=== PATIENT | female | born 1960 | race Caucasian/White ===

== ENCOUNTER 2024-07-11 08:57 | Emergency (ER) | payer OTHER, SELFPAY ==
[2024-07-11 09:03] VITALS: BP 157/103
--- NOTE | 2024-07-11 09:38 | ED.GENMED ---
History of Present Illness
General
Chief Complaint: Chest Pain
Source: patient
Exam Limitations: none
Time Seen by Provider: 07/11/24 09:21
History of Present Illness
History of Present Illness:
63-year-old female presents complaining of left-sided chest discomfort rating down the arm that started about 2 days ago. This was preceded by increased frequency of palpitations over the past 2 weeks. She notes skipped beats and occasional strong
beats. She also notes recent flights to [place] within the past several weeks. Occasionally Gets lightheaded. The discomfort in her chest may be more suddenly worse deep breathing. She denies shortness of breath. She has a history of high
cholesterol. She is on estradiol cream topically. She is not a smoker. No other complaints at this time
Past History
Past History
ED Past Medical History: None
ED Past Surgical History: None
Phy Exam
Physical Exam
Physical Exam:
General: Well-appearing female no acute respiratory distress
HEENT: Normocephalic atraumatic
Heart: Regular rate and rhythm no murmurs
Lungs: Clear no wheeze
Extremities: No cyanosis or edema no calf tenderness
Skin is warm no rash
Scores
Heart Score for Chest Pain Patients
STEMI patient?: No
History: Slightly or Non-Suspicious
ECG: Normal
Age: >45 - <65 years
Risk Factors: 1 or 2 Risk Factors
Troponin: </= Normal Limit
Heart Score for Chest Pain Patients: 2
Heart Score Risk: 2.5% MACE over next 6 weeks
Course
Orders/Labs/Results
Orders:
Orders
07/11/24 08:58
EKG [Electrocardiogram (*1)] Urgent
Reason for Study: Chest Pain
EKG- Treatment ONCE
07/11/24 09:36
Complete Blood Count/With Diff Urgent
Comprehensive Metabolic Panel Urgent
D-Dimer Urgent
Troponin I Urgent
07/11/24 09:42
TSH Reflex To Free T4 Urgent
07/11/24 10:50
CR Chest - 2 Views Urgent
Comment:
Reason For Exam: chest pain
07/11/24 11:39
Orthostatic VS- Treatment ONCE
07/11/24 12:27
0.9% Sodium Chloride 1000 ml [Nss] 1,000 ml IV BOLUS
Abnormal Lab Results
07/11/24
09:36
MPV 10.7 H fL
(7.4-10.4)
Monocytes % 9.7 H %
(1.7-9.3)
BUN 21 H mg/dl
(7-17)
07/11/24 09:36
07/11/24 09:36
Vital Signs
Initial and Last Documented VS:
Initial Vital Signs
Temp Pulse Resp BP Pulse Ox
98.3 F 57 18 157/103 100
07/11/24 09:03 07/11/24 09:03 07/11/24 09:03 07/11/24 09:03 07/11/24 09:03
Last Documented Vital Signs
Temp Pulse Resp BP Pulse Ox
98.3 F 61 18 116/66 96
07/11/24 09:03 07/11/24 09:36 07/11/24 12:00 07/11/24 11:00 07/11/24 11:00
MDM/Problems Addressed
Differential Diagnosis Includes:
Chest pain. This is an acute problem. Differential could include ACS versus PE given the long recent flights versus palpitations
Will check labs and EKG. EKG shows sinus rhythm with a rate of 65 and no ischemic changes. Patient placed on monitor. Given recent flight D-dimer pending
*Critical Care Note
Total Time (30-74mins, 75-104mins- exclusive of procedures): Not Applicable
Update Note
Update Note:
Patient reevaluated. Orthostatic vital signs were ordered given her lightheadedness. She did drop in her blood pressure when she stood up and felt lightheaded. Patient has been opting for oral hydration. Offered her IV fluids but she declined.
D-dimer and troponin were undetectable. Chest x-ray was clear. TSH normal. I do not suspect chest pain is any sign of ACS at this time but she does have an appointment with a blow mold operator in 2 weeks. Advised to keep this. Stable for discharge.
No obvious arrhythmias noted on my
ED Attending Note
-
Portions of this chart may have been created with voice recognition software.� Occasional wrong word or��sound alike� substitutions may have occurred due to the inherent limitations of voice recognition software.
Discharge Plan
Departure
Patient Disposition: Home (Routine Discharge)
Date of Disposition: 07/11/24
Time of Disposition: 12:31
Patient with high blood pressure during this ER visit?: No
Discharge Problem:
Heart palpitations
Instructions: Chest Pain NON-[facility] [employer] Follow Up
Referrals:
CLARENCE HARDWICK [Other]
Activity Restrictions/Additional Instructions:
Please return here for worsening symptoms otherwise keep following up with your blow mold operator as planned. Stay hydrated
Interventions
Interventions:
*Risk Screen - Suicide Last Done: 07/11/24 09:08
*General Assessment Last Done: 07/11/24 09:08
*Neglect/Abuse Screening Last Done: 07/11/24 09:08
ED- Fall Risk Assessment Last Done: 07/11/24 11:20
*ED COVID-19 Vaccine History Last Done: 07/11/24 09:08
ED- Cardiac Assessment Last Done: 07/11/24 10:00
Discharge Date and Time
Print Language: BENGALI
[2024-07-11 10:00] VITALS: BP 115/78
[2024-07-11 10:07] LABS: % Basophils 0.6 % (0-2); % Immature Granulocytes 0.2 % (0-0.5); % Lymphocytes 26.9 % (20.5-51.1); % Monocytes 9.7 % (1.7-9.3); % Neutrophils 60.6 % (42.2-75.2); Absolute Eosinophils 0.1 10^3/uL (0-0.7); Absolute Lymphocytes 1.4 10^3/uL (1.2-3.4); Absolute Monocytes 0.5 10^3/uL (0.1-0.6); Absolute Neutrophils 3.1 10^3/uL (1.4-6.5); Hematocrit 41.7 % (37.0-47.0); Hemoglobin 14.4 g/dL (12.0-16.0); Mean Corp Hgb Conc. 34.5 g/dL (33.0-37.0); Mean Corpuscular Hgb 30.9 pg (27.0-31.0); Mean Corpuscular Volume 89.5 fL (81.0-99.0); Mean Platelet Volume 10.7 fL (7.4-10.4); Nucleated Red Blood Cells % 0 %; Platelet Count 261 10^3/uL (130-400); Red Blood Cell Count 4.66 10^6/uL (4.20-5.40); Red Cell Dist. Width 12.2 % (11.5-14.5); White Blood Cell Count 5.1 10^3/uL (4.8-10.8)
[2024-07-11 10:17] LABS: ALT (SGPT) 30 U/L (0-35); AST (SGOT) 31 U/L (14-36); Albumin 4.9 g/dl (3.5-5.0); Alkaline Phosphatase 66 U/L (38-126); Blood Urea Nitrogen 21 mg/dl (7-17); Calcium 10.2 mg/dl (8.4-10.2); Carbon Dioxide 24 mmol/L (22-30); Chloride 105 mmol/L (98-107); Glucose 85 mg/dl (70-99); Potassium 4.6 mmol/L (3.5-5.1); Sodium 141 mmol/L (135-145); Total Bilirubin 0.8 mg/dl (0.2-1.3); Total Protein 7.6 g/dl (6.3-8.2); eGFR > 60.00
[2024-07-11 10:33] LABS: Troponin I < 0.012 ng/ml
[2024-07-11 10:46] LABS: D-Dimer < 0.27 ug/mlFEU (0.00-0.50)
[2024-07-11 10:48] LABS: TSH Reflex To Free T4 1.55 uIU/ml (0.47-4.68)
[2024-07-11 11:00] VITALS: BP 116/66
[2024-07-11 12:16] VITALS: BP 109/75; BP 112/70; BP 90/72
== END 2024-07-11 12:56 | disposition home or self-care (01) ==
LOC: EMR 08:57
PROVIDERS: Physician Assistant; EMERGENCY PHYSICIAN Emergency Medicine
DX: R07.89 Other chest pain (principal); R00.2 Palpitations; E78.00 Pure hypercholesterolemia, unspecified
CPT/HCPCS: 99283; 71046; 80053; 84443; 84484; 85025; 85379; 93005